=== PATIENT | male | born 1945 | race Hispanic/Latino ===

== ENCOUNTER 2017-03-07 09:05 | Outpatient (CLI) | payer MEDICARE ==
[2017-03-07 10:33] LABS: Hemoglobin A1c 8.7 % (4.0-6.0)
[2017-03-07 10:35] LABS: ALT (SGPT) 14 U/L (8-55); AST (SGOT) 11 U/L (5-34); Alkaline Phosphatase 84 U/L (40-150); Anion Gap 15 mmol/L (10-20); BUN (Urea Nitrogen) 13 mg/dL (8.4-25.7); Bilirubin, Total 0.3 mg/dL (0.2-1.2); Calc. Creatinine Clearance 0 mL/min (70-130); Calcium 9.1 mg/dL (7.8-10.44); Carbon Dioxide 27 mmol/L (23-31); Cardiac Risk 3.1 (Less than 4.5); Chloride 103 mmol/L (98-107); Cholesterol 101 mg/dl (< 200 Desired); Estimated GFR-MDRD Greater than 90; Glucose 198 mg/dL (83-110); HDL Cholesterol 33 mg/dL (>60 Neg Risk); LDL Cholesterol, Calculated 41 mg/dL; Potassium 4.2 mmol/L (3.5-5.1); Sodium 141 mmol/L (136-145); Triglycerides 136 mg/dL (Less than 150)
== END 2017-03-07 09:06 | disposition home or self-care (01) ==
LOC: NAV LAB 09:05
PROVIDERS: ATTEND Family Medicine
DX: E11.59 Type 2 diabetes mellitus with other circulatory complications (principal)
CPT/HCPCS: 36415; 80053; 80061; 83036

== ENCOUNTER 2018-10-25 14:06 | Outpatient (CLI) | payer MEDICARE | END 2018-10-25 14:07 | disposition home or self-care (01) | LOC: NAV DTY OP 14:06 | PROVIDERS: ATTEND Family Medicine | DX: E11.59 Type 2 diabetes mellitus with other circulatory complications (principal); Z79.4 Long term (current) use of insulin | CPT/HCPCS: 97802 ==

== ENCOUNTER 2020-10-18 08:39 | Outpatient (CLI) | payer MEDICARE ==
--- NOTE | 2020-10-18 09:13 | RAD ---
Frontal and lateral imaging of the chest: 10/18/2020 COMPARISON: 06/28/2018 HISTORY: Covid 19 infection, pneumonia FINDINGS: Heart and mediastinal contours are stable. There is atherosclerotic calcification of the ao rtic arch. There is no pneumothorax or pleural fluid and no focal consolidation or alveolar edema. There is a linear increased interstitial density and pulmonary hyperinflation suggesting air trapping on the basis of COPD in the proper clinical setting. IMPRESSION: No significant interval change.
== END 2020-10-18 08:40 | disposition home or self-care (01) ==
LOC: NAV RAD 08:39
PROVIDERS: ATTEND Family Medicine
DX: U07.1 COVID-19 (principal); J12.82 Pneumonia due to coronavirus disease 2019
CPT/HCPCS: 71046